=== PATIENT | female | born 1985 | race Caucasian/White ===

== ENCOUNTER 2019-02-24 23:18 | Emergency (ER) | payer MEDICAID ==
[~2019-02-24] VITALS: Ht 149.9 cm; Wt 80.3 kg
[2019-02-24 23:23] VITALS: BP 125/98
--- NOTE | 2019-02-24 23:27 | NUR ---
PT AMBULATED TO BED 2. PROVIDED WITH URINE CUP. Addendum: 02/24/19 at 2330 by [facility] PT AMBULATED TO BED 4. PROVIDED WITH URINE CUP.
[2019-02-24] MEDS ORDERED: NACL 0.9% 1,000 ML IV ONE (23:30)
[2019-02-24] MEDS ORDERED: ONDANSETRON 4 MG/2 ML VIAL IVP ONE (23:30)
[2019-02-24] MEDS ORDERED: KETOROLAC 30 MG/ML VIAL IVP ONE (23:30)
[2019-02-25 00:55] VITALS: BP 128/91
--- NOTE | 2019-02-25 00:55 | NUR ---
Patient discharged with v/s stable. Written and verbal after care instructions given and explained. Patient alert, oriented and verbalized understanding of instructions. Ambulatory with steady gait. All questions addressed prior to discharge. ID band removed. Patient advised to follow up with PMD. Rx of MOTRIN, ZOFRAN, AND PREDNISONE given. Patient educated on indication of medication including possible reaction and side effects. Opportunity to ask questions provided and answered.
== END 2019-02-25 00:55 | disposition home or self-care (01) ==
LOC: MED 23:18
DX: R10.13 Epigastric pain (principal); R11.2 Nausea with vomiting, unspecified; R19.7 Diarrhea, unspecified; J02.9 Acute pharyngitis, unspecified; J45.909 Unspecified asthma, uncomplicated; Z88.1 Allergy status to other antibiotic agents; Z88.5 Allergy status to narcotic agent
CPT/HCPCS: 81002; 81025; 96361; 96374; 96375; 99283; J1885; J2405; J7030